=== PATIENT | male | born 1995 | race Caucasian/White ===

== ENCOUNTER 2017-04-17 21:19 | Emergency (ER) | payer SELFPAY ==
[~2017-04-17] VITALS: Ht 185.4 cm; Wt 68.0 kg
[2017-04-17] MEDS ORDERED: TETRACAINE HCL 0.5% OPHT DROP 2 ML BOTTLE OP ONE (22:00)
[2017-04-17] MEDS ORDERED: FLUORESCEIN SODIUM 1 MG STRIP OP ONE (22:00)
[2017-04-17] MEDS ORDERED: IBUPROFEN 600 MG TABLET PO ONE (22:00)
[2017-04-17] MEDS ORDERED: FLUORESCEIN SODIUM 1 MG STRIP ONE (22:03)
[2017-04-17] MEDS ORDERED: TETRACAINE HCL 0.5% OPHT DROP 2 ML BOTTLE ONE (22:03)
--- NOTE | 2017-04-17 22:15 | NUR ---
Patient discharged to home in stable conditon. Written and verbal after care instructions given. Patient verbalizes understanding of instructions.
[2017-04-17] MEDS ORDERED: IBUPROFEN 600 MG TABLET ONE (22:21)
== END 2017-04-17 22:17 | disposition home or self-care (01) ==
LOC: ER 21:20
DX: H57.11 Ocular pain, right eye (principal)
CPT/HCPCS: A4663